=== PATIENT | male | born 1975 ===

== ENCOUNTER 2019-03-14 10:01 | Inpatient (IN) | payer BC ==
--- NOTE | 2019-03-14 11:34 | ED ---
HPI Febrile Illness - HPI Summary HPI Summary: The patient is a 44 y/o M presenting to [facility] accompanied by with a chief complaint of febrile illness onset 03/05/2019. He reports that he began a trip with his family to [facility] on 02/25/2019 and had been traveling for a few days throughout the [facility] and into the [facility] in [facility] prior to developing a fever, headache, mild nonproductive cough, and body aches on 2018. He began takin Ibuprofen for the headaches, which he described as a lightning storm. After returning to the , his symptoms persisted, and he had two doses of Cipro prophylactically on 03/08/2019 and 03/09/2019. He visited his PCP on 03/10/2019, where it was found by CXR that he had right lower lobe PNA, so he was started on Levaquin. In addition to the Levaquin, which he has not yet finished the course of, he has been taking Ibuprofen and Tylenol because his fever has not resolved. He states that he has been feeling better over the last two days, but he has not experienced a day where his temperature hasnt reached over 100.4F since onset, although he has had had a few hours of relief each day with normal temperatures. His max temperature has been 104.0F; this morning his temperature was 101F prior to taking medications. All of his other symptoms have since resolved, although he still experiences a mild cough intermittently with chills. He denies any rhinorrhea, nausea, vomiting, diarrhea , dysuria, hematuria, or change in urine frequency. He has not observed any rashes on the skin, and he notes that he only had one insect bite during his trip. His family ate at all of the same places as him, and they only drank bottled water, but they have not experienced the same symptoms. He does not believe he was in any areas with severe warnings for infectious diseases. UTD on all vaccines other than hepatitis A. No known PMHx. Nonsmoker, occasional EtOH, no substance use. Medications reviewed. Allergies noted. - History of Current Complaint Chief Complaint: EDGeneral Time Seen by Provider: 03/14/19 11:23 Hx Obtained From: Patient Onset/Duration: Started Days Ago - 03/05/19, Still Present Timing: Intermittent, Lasting Hours Temperature: 101 F - this morning Initial Severity: Moderate Current Severity: Mild Pain Intensity: 0 Pain Scale Used: 0-10 Numeric Aggravating Factors: Nothing Alleviating Factors: Nothing - meds for a few hours but fever returns Associated Signs and Symptoms: Chills, Headache - resolved, Myalgia - body aches (resolved), Other: - Negative: nausea, vomiting, diarrhea, hematuria, dysuria, change in urine frequency, rhinorrhea - Allergy/Home Medications Allergies/Adverse Reactions: Allergies Allergy/AdvReac Type Severity Reaction Status Date / Time No Known Allergies Allergy Verified 03/14/19 10:09 Home Medications: Home Medications Acetaminophen TAB* [Tylenol TAB*] 325 mg PO Q4H PRN 03/14/19 [History Confirmed 03/14/19] Levofloxacin TAB* [Levaquin TAB*] 750 mg PO DAILY 03/14/19 [History Confirmed ] PMH/Surg Hx/FS Hx/Imm Hx Endocrine/Hematology History: Denies: Hx Diabetes Cardiovascular History: Denies: Hx Hypertension Sensory History: Reports: Hx Contacts or Glasses Opthamlomology History: Reports: Hx Contacts or Glasses - Surgical History Surgical History: None Surgery Procedure, Year, and Place: none Infectious Disease History: No Infectious Disease History: Denies: Hx Clostridium Difficile, Hx Hepatitis, Hx Human Immunodeficiency Virus (HIV), Hx of Known/Suspected MRSA, Hx Shingles, Hx Tuberculosis, Hx Known/ Suspected VRE, Hx Known/Suspected VRSA, History Other Infectious Disease, Traveled Outside the [place] in Last 30 Days - Family History Known Family History: Negative: Hypertension - Social History Alcohol Use: Occasionally Substance Use Type: Reports: None Hx Tobacco Use: No Smoking Status (MU): Never Smoked Tobacco Review of Systems Positive: Fever - max 104F, Chills Negative: Nasal Discharge Positive: Cough - mild, nonproductive Negative: Vomiting, Diarrhea, Nausea Negative: dysuria, frequency, hematuria Positive: Myalgia - general body aches (resolved) Positive: Headache - resolved All Other Systems Reviewed And Are Negative: Yes Physical Exam - Summary Physical Exam Summary: Constitutional: Well-developed, Well-nourished, Alert. (-) Distressed Skin: Warm, Dry HENT: Normocephalic; Atraumatic Eyes: Conjunctiva normal Neck: Musculoskeletal ROM normal neck. (-) JVD, (-) Stridor, (-) Tracheal deviation Cardio: Rhythm regular, rate normal, Heart sounds normal; Intact distal pulses; Radial pulses are 2+ and symmetric. (-) Murmur Pulmonary/Chest wall: Effort normal. (-) Respiratory distress, (-) Wheezes, (-) Rales Abd: Soft, (-) tenderness, (-) Distension, (-) Guarding, (-) Rebound Musculoskeletal: (-) Edema Lymph: (-) Cervical adenopathy Neuro: Alert, Oriented x3 Psych: Mood and affect Normal Triage Information Reviewed: Yes Vital Signs On Initial Exam: Initial Vitals Temp Pulse Resp BP Pulse Ox 98 F 82 14 138/77 97 03/14/19 10:04 03/14/19 10:04 03/14/19 10:04 03/14/19 10:04 03/14/19 10:04 Vital Signs Reviewed: Yes Procedures - Sedation Patient Received Moderate/Deep Sedation with Procedure: No Diagnostics - Vital Signs Vital Signs Temp Pulse Resp BP Pulse Ox 03/14/19 10:04 98 F 82 14 138/77 97 - Laboratory Result Diagrams: 03/14/19 11:43 03/14/19 11:43 Lab Statement: Any lab studies that have been ordered have been reviewed, and results considered in the medical decision making process. - Radiology CXR Radiology Interpretation Completed By: Radiologist Summary of Radiographic Findings: Impression: Right pleural effusion with progression of right lower lung consolidation. Recommend follow-up until resolution to exclude underlying pulmonary parenchymal pathology. ED physician has reviewed this report. Re-Evaluation - Re-Evaluation First Eval Re-Evaluation Time: 12:30 Comment: We discussed consulation with Dr. Poon with plan for admission for thoracentesis. Patient understands and agrees. We will start IV abx. Course/Dx - Course Course Of Treatment: Patient's here 10 days of fever started while he was in [facility]. Patient was started on Levaquin on the third by his PCP for right middle lobe pneumonia. Patient continues to have fever so he came here. Patient had blood performed which showed an elevated CRP of 250 a normal white count. Patient had blood culture sent. Patient had a chest x-ray showed worsening pneumonia with a parapneumonic effusion. Dr. Mann was called to make sure there were no tropical diseases related to be worried about and he suggested treating the pneumonia first. Patient was given cefepime and vancomycin for empiric coverage. Patient is admitted to the hospitalist - Diagnoses Provider Diagnoses: Right lower lobe pneumonia, Fever, Chills, Empyema - Provider Notifications Discussed Care Of Patient With: Reinier Poon MD - infectious disease Time Discussed With Above Provider: 12:20 Instructed by Provider To: Other - I discussed the patient's case with Dr. Poon, who recommends a thoracentesis. He does not believe there is concern for an infectious disease. I spoke with Dr. Ennis from hospitalist services, who accepts the patient for admission at 1235. Discharge ED - Sign-Out/Discharge Documenting (check all that apply): Patient Departure - Patient accepted for admission by Dr. Ennis. - Discharge Plan Condition: Stable Disposition: ADMITTED TO [facility] - Billing Disposition and Condition Condition: STABLE Disposition: Admitted to [facility] - Attestation Statements Document Initiated by Bita: Yes Documenting Scribe: Alexa Carrillo Provider For Whom Bita is Documenting (Include Credential): Dr. Sean Romero MD Scribe Attestation: IAlexa, scribed for Dr. eSan Romero MD on 03/14/19 at 2124. Scribe Documentation Reviewed: Yes Provider Attestation: The documentation as recorded by the Alexa phillips accurately reflects the service I personally performed and the decisions made by me, Dr. Sean Romero MD Status of Scribmik Document: Viewed
[2019-03-14 11:59] LABS: ABS Lymphocytes 0.5 10^3/ul (1.0-4.8); ABS Monocytes 0.6 10^3/ul (0-0.8); Hematocrit 40 % (42-52); Hemoglobin 13.6 g/dL (14.0-18.0); Lymphocyte % 7.7 %; Mean Corpuscular HGB Conc 34 g/dL (31-36); Mean Corpuscular Hemoglobin 31 pg (27-31); Mean Corpuscular Volume 91 fL (80-94); Mean Platelet Volume 8.9 fL (7.4-10.4); Platelet Count 196 10^3/uL (150-450); Red Blood Count 4.33 10^6 /uL (4.18-5.48); Red Cell Distribution Width 14 % (10-15)
[2019-03-14 12:10] LABS: Urine Appearance Clear; Urine Bilirubin Negative (Negative); Urine Blood 1+ (Negative); Urine Color Straw; Urine Glucose Negative (Negative); Urine Ketones Negative (Negative); Urine Nitrite Negative (Negative); Urine Protein Negative (Negative); Urine Specific Gravity 1.002 (1.010-1.030); Urine Urobilinogen Negative (Negative)
[2019-03-14 12:11] LABS: Urine Bacteria Absent (Absent); Urine Red Blood Cell Absent (Absent); Urine White Blood Cell Absent (Absent)
[2019-03-14 12:15] LABS: Albumin 3.4 g/dL (3.2-5.2); Albumin/Globulin Ratio 0.9 (1-3); BUN/Creatinine Ratio 9.4 (8-20); C Reactive Protein 252.09 mg/L (<8.01); Calcium 8.9 mg/dL (8.6-10.3); EGFR Non-African American 84.3 (>60); Globulin 3.7 g/dL (2-4); Potassium 3.9 mmol/L (3.5-5.0); Total Bilirubin 0.4 mg/dL (0.2-1.0); Total Protein 7.1 g/dL (6.4-8.9)
[2019-03-14] MEDS ORDERED: Cefepime(*) 1 GM in NS 0.9% 50 ML* 50 ML IVPB ONE (12:29)
[2019-03-14] MEDS ORDERED: Vancomycin(*) 1,500 MG in NS 0.9% 250 ML* 250 ML IVPB ONE ×2 (12:35→13:00)
[2019-03-14] MEDS ORDERED: Ibuprofen TAB* 200 MG PO PRN (12:48)
[2019-03-14] MEDS ORDERED: Vancomycin per Pharmacy* NOTE FOLLOW UP SCH (13:00)
[2019-03-14] MEDS ORDERED: Cefepime 1 GM in Dextrose(*) 1 GM/50 ML q12h (Duplex) IV ONE (13:00)
--- NOTE | 2019-03-14 14:27 | HP ---
CC: Dr. Poon; Dr. Murray; JEFE Herman * HISTORY AND PHYSICAL: DATE OF ADMISSION: 03/14/19 PRIMARY CARE PROVIDER: JEFE Herman CHIEF COMPLAINT: Fever, chills, cough. HISTORY OF PRESENT ILLNESS: Maicol Li is a 44-year-old male who just came back from a trip to [facility] on 03/08/19. He stated that they went with his family to [facility] on [facility] and on 02/25/19 they arrived at [facility], they did some snorkeling and the patient felt well until when he started developing headache, fever and mild cough as well as body aches. He took some ibuprofen, but he did not feel like it was breaking the fever and after returning back from [facility] to [facility] between 03/07/19 and 03/08/19 he decided to eventually take ciprofloxacin that he had with himself and he took 1000 mg of it on 03/09/19. He felt that it did not make any difference and on 03/10/19 he came into [facility] for evaluation. Here, he was noted to have negative flu testing and chest x-ray showing pneumonia of the right middle lobe. At that point, he was prescribed Levaquin and sent home. He stated that he had been taking Levaquin daily as well as ibuprofen and Tylenol on an as-needed basis and he had been doing several doses of ibuprofen and Tylenol daily. Despite that, he still continues to have nightly chills and dry cough in the evening. He came today to the ED for evaluation and was noted to have definitely worsened right middle lobe pneumonia and small right-sided pleural effusion. His C-reactive protein is above 250. He is going to be admitted to the hospital with a diagnosis of pneumonia. PAST MEDICAL HISTORY: None. The patient has been healthy all his life. He never spent a night in the hospital. MEDICATIONS: Include: 1. Levaquin 750 mg daily. 2. Acetaminophen on a p.r.n. basis. 3. Ibuprofen on a p.r.n. basis. ALLERGIES: No known drug allergies. FAMILY HISTORY: Reviewed and noncontributory. SOCIAL HISTORY: The patient denies any tobacco or drug use. He drinks alcohol rarely. 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 His , Miracle Lo, is his surrogate and healthcare proxy. They have a 12-year-old child together. He is a full code. REVIEW OF SYSTEMS: Please see history of present illness. In addition to the above mentioned, the patient stated that his appetite had been low and he has been feeling overall weak. He denies any GI symptoms. He denies any rashes. When he was snorkeling in the [facility], he did use vented gear. He had his vaccine for flu in February of 2019. Despite working in the [employer], he has not seen or been visiting farms or farm animals for quite some time. All the remaining 12 systems were reviewed with the patient and were otherwise negative. PHYSICAL EXAMINATION GENERAL: The patient is a very pleasant 44-year-old male, who is in no acute distress. The patient is alert and oriented x3. VITAL SIGNS: Blood pressure of 123/75, heart rate of 82 and regular, respiratory rate 14, oxygen saturation 96% on room air, temperature 98.3. HEENT: Head: Atraumatic, normocephalic. Eyes: Pupils are equal, reactive to light and accommodation. Oropharynx is clear. Mucosa moist. NECK: Supple. No JVD. No bruits bilaterally. RESPIRATORY: Clear to auscultation bilaterally with mildly decreased breath sounds in the right lower base. CARDIOVASCULAR: Regular rate and rhythm. No murmur. ABDOMEN: Soft, nontender. Bowel sounds are present in all 4 quadrants. EXTREMITIES: There is no edema. Pulses are +2 bilaterally. No clubbing or cyanosis. NEUROLOGIC: Speech is clear. Cranial nerves II through XII grossly intact. Motor strength is 5/5 bilaterally. SKIN: On evaluation of the skin, no ecchymotic areas or rashes noted. DIAGNOSTIC STUDIES/LAB DATA: White blood cell count of 6, hemoglobin of 13.6, hematocrit 40, and platelets 196. Sodium was 132, potassium 3.9, chloride 96, carbon dioxide 28, BUN 9, creatinine 0.96. Liver function tests were unremarkable. C-reactive protein of 252. Urinalysis grossly unremarkable with low specific gravity of 1.002. The patient's portable chest x-ray, impression: "Right pleural effusion with progression of right lower lung consolidation, recommend followup until resolution to exclude underlying pulmonary parenchymal pathology." The patient's flu test was negative on 03/10/19. ASSESSMENT AND PLAN: 1. Pneumonia with effusion. The patient's pneumonia failed to be treated with Levaquin for the past 3 days. He is going to be admitted to the hospital. The concerning factor is that the infiltrate is increasing and the patient right now has an effusion. I will ask Dr. Murray to see the patient in consultation and possibility of thoracentesis. Dr. Poon is also going to be consulted as an infectious disease specialist. For the time being, the patient is going to be treated with broad-spectrum antibiotics including vancomycin and cefepime that were already started in the emergency department. Blood cultures were obtained. I ordered sputum cultures, although the patient does not produce any sputum at this point. 2. For DVT prophylaxis, ambulation was encouraged. The patient is otherwise low risk. 3. The patient's code status is full. His surrogate is his . TIME SPENT: Approximately 62 minutes was spent on admission of this patient, more than half that time was spent [id number] with the patient during the interview and physical exam. [id number]/[facility] #: [id number] AMY
[2019-03-14] MEDS: NS 0.9% 1000 ML** 1,000 ML IV SCH (15:16)
--- NOTE | 2019-03-14 18:11 | CONS ---
PULMONARY CONSULTATION REPORT: DATE OF CONSULT: 03/14/19 CONSULTATION REQUESTED BY: Dr. Ennis. REASON FOR CONSULT: Evaluation of pneumonia. HISTORY OF PRESENT ILLNESS: 44-year-old male with no past medical history. Patient presented for evaluation of fever, chills and cough. The patient recently had a trip to [facility] and [facility]. The patient left for the trip on 02/25/19. On the night of 03/05/19, he started experiencing fevers. The patient reports some sick contacts during his flight. He also did snorkeling. He was doing all these activities along with his significant other and his son, who has not had any illness in this trip. He started having significant fevers, headaches and cough, which is mostly dry associated with body aches. He has been taking ibuprofen, however, it was not breaking the fever and after returning back from [facility] to [facility] on 03/07/19, he decided to take ciprofloxacin that he had with him. It did not make any difference and came into the [facility] on 03/10/19 for evaluation. He had negative flu test and chest x-ray done at that time showed right middle lobe pneumonia. He was prescribed Levaquin and was sent home. He continued to have fevers, chills, and dry cough. He has been getting ibuprofen and Tylenol on a daily basis. He also had night sweats. Fever is mostly at night and breaks early in the morning. The patient denies chest pain, palpitations, dizziness, loss of weight or appetite. The patient denies any hemoptysis. The patient presented to the ED for further evaluation of these symptoms. The patient had repeat chest x-ray this morning. I personally reviewed chest x-ray , in comparison with the most recent x-ray. The patient with right mid zone air space opacity with slight progression in comparison with prior x-ray. Lateral chest x-ray also showed small right pleural effusion without any obvious complexities and evidence of loculations. His C-reactive protein levels were also significantly elevated, He was admitted for management of pneumonia after failing outpatient antibiotic. The patient was seen and examined at bedside. The patient does not appear to be sick or in any distress. He is hemodynamically stable. Has mild cough with taking deep breaths. Denies any more headaches. His family members are at bedside. PAST MEDICAL HISTORY: No issues. MEDICATIONS: 1. Levaquin. 2. Acetaminophen. 3. Ibuprofen. ALLERGIES: No known drug allergies. FAMILY HISTORY: No history of lung issues in the family. SOCIAL HISTORY: Nonsmoker with occasional alcohol intake. He works in [employer], mostly office job. REVIEW OF SYSTEMS: All 12 systems were reviewed and as per HPI. PHYSICAL EXAM: General: The patient in bed, in no apparent distress. Vital Signs: Temperature 97.9, pulse 85 beats per minute, respiratory rate 18 per minute, O2 sat 97% on room air, blood pressure 113/77. HEENT: Pupils equal, reactive to light. Mucous membranes moist. Lungs: Good air entry bilaterally. No wheeze or crackles. Cardiovascular: S1 and S2 present, regular. Abdomen: Soft, nontender, nondistended. Extremities: Normal range of motion. Skin: No rash or bruits. Neuro: Alert, awake, oriented x3. No focal deficits. DIAGNOSTIC STUDIES/LAB DATA: WBC count 6, hemoglobin 13.6, hematocrit 40, platelet count 196. No left shift. Sodium 132, potassium 3.9, chloride 96, bicarb 28, BUN 9, creatinine 0.96. Lactic acid 1. CRP elevated at 252. UA showed 1+ blood with no rbc. Blood cultures pending at this time. Sputum cultures have not been sent. Chest x-ray as described above in HPI. IMPRESSION AND RECOMMENDATIONS: 44-year-old male with no past medical history with recent travel presenting with fevers and chills in a week into travel. The patient with air space opacity in the right lung with slight progression over the past couple of days - evolving pneumonia versus pulmonary abscess. Less likely to be inflammatory like Leonard's; however, still in the differential given that other family members have not been ill with similar symptoms. Acute pulmonary tuberculosis less likely given the timeframe. The patient is on broad spectrum antibiotics at this time. Will repeat blood cultures when the patient is febrile. The patient is not able to to expectorate any phlegm. Will try with flutter device. Will order CT chest for further evaluation of pulmonary abscess. The patient with small right pleural effusion, did not appreciate any complexity from the chest x-ray. If CT shows enough fluid to be safely drained or shows any complexities in the fluid or evidence of pulmonary abscess, will perform thoracentesis. Thank you for allowing me to participate in the care of your patient. Will follow with you. [id number]/[facility] #: [id number] AMY
[2019-03-14] MEDS: Benzonatate CAP* 100 MG PO SCH (20:06)
[2019-03-14] MEDS: Acetaminophen TAB* 325 MG PO PRN (20:06)
[2019-03-14] MEDS: Vancomycin(*) 1,250 MG in NS 0.9% 250 ML* 250 ML IV SCH (22:53)
[2019-03-15] MEDS: Cefepime 1 GM in Dextrose(*) 1 GM/50 ML BAG IV SCH ×2 (01:04→13:22)
[2019-03-15] MEDS: Acetaminophen TAB* 325 MG PO PRN (03:37)
[2019-03-15 05:29] LABS: ABS Lymphocytes 0.6 10^3/ul (1.0-4.8); ABS Monocytes 0.5 10^3/ul (0-0.8); ABS Neutrophils 2.5 10^3/ul (1.5-7.7); Eosinophil % 0.5 %; Hematocrit 34 % (42-52); Hemoglobin 11.9 g/dL (14.0-18.0); Mean Corpuscular HGB Conc 35 g/dL (31-36); Mean Corpuscular Hemoglobin 32 pg (27-31); Mean Corpuscular Volume 90 fL (80-94); Mean Platelet Volume 8.5 fL (7.4-10.4); Platelet Count 189 10^3/uL (150-450); Red Blood Count 3.78 10^6 /uL (4.18-5.48); Red Cell Distribution Width 14 % (10-15); White Blood Count 3.7 10^3/uL (3.5-10.8)
[2019-03-15] MEDS: Vancomycin(*) 1,250 MG in NS 0.9% 250 ML* 250 ML IV SCH ×3 (05:35→21:30)
[2019-03-15] MEDS: NS 0.9% 1000 ML** 1,000 ML IV SCH (05:35)
[2019-03-15 05:46] LABS: BUN/Creatinine Ratio 8.1 (8-20); Calcium 7.9 mg/dL (8.6-10.3); EGFR African American 115.8 (>60); EGFR Non-African American 95.7 (>60); Potassium 3.7 mmol/L (3.5-5.0)
[2019-03-15] MEDS: Benzonatate CAP* 100 MG PO SCH ×2 (08:45→21:03)
[2019-03-15] MEDS: guaiFENesin ER TAB 600 MG PO SCH ×2 (10:41→21:03)
--- NOTE | 2019-03-15 13:03 | BRIEFOPN ---
Brief Operative/Procedure Note - Operation Details Pre-Op Diagnosis: Pleural effusion Post-Op Diagnosis: Moderate effusion on right Procedures: U/S guided thoracentesis on right side Surgeon(s)/Proceduralists: aliya Murray Anesthesia: Local with 1% lidocaine 5cc Estimated Blood Loss: None Findings: Dark yellow fluid-400cc Specimen(s)/Culture(s) Description: Fluid for cyto, biochem, micro Complications: None
--- NOTE | 2019-03-15 13:21 | PN ---
Progress Note - Progress Note Date of Service: 03/15/19 - Pulm f/u note Note: Pt seen and examined at bedside. Pt reports feeling better. Has intermittent dry cough Active Medications Generic Name Dose Route Start Last Admin Trade Name Freq PRN Reason Stop Dose Admin Acetaminophen 650 mg 03/14/19 12:46 03/15/19 03:37 Tylenol Tab* PO 650 mg Q4H PRN Administration PAIN-MILD/TEMP >/= 100.4 Benzonatate 100 mg 03/14/19 21:00 03/15/19 08:45 Tessalon Cap* PO Not Given BID ZAC Guaifenesin 1,200 mg 03/15/19 10:00 03/15/19 10:41 Mucinex* PO 1,200 mg BID ZAC Administration Cefepime HCl 1 gm in 50 mls @ 100 mls/hr 03/15/19 01:00 03/15/19 01:04 Maxipime 1 Gm In Dextrose Duplex (*) IV 100 mls/hr Q12H ZAC Administration Vancomycin HCl 1,250 mg/ 250 mls @ 166.667 mls/hr 03/14/19 22:00 03/15/19 05: 35 Sodium Chloride IV 166.667 mls/hr Q8H ZAC Administration Ibuprofen 600 mg 03/14/19 12:48 Advil Tab* PO Q6H PRN PAIN - MODERATE Pharmacy Consult 1 note 03/14/19 13:00 Vancomycin Per Pharmacy* FOLLOW UP .VANC PER PHARMACY ZAC Protocol Pharmacy Profile Note 1 note 03/16/19 05:30 Vancomycin Trough Check FOLLOW UP 03/16/19 05:31 0530 ONE Vital Signs Temp Pulse Resp BP Pulse Ox 98.0 F 85 20 122/76 93 03/15/19 07:15 03/15/19 07:15 03/15/19 08:00 03/15/19 07:15 03/15/19 07:15 O/E: Pt in NAD HEENT: PERRLA, no JVD Lungs: Diminished air entry at rt base, no crackles CVS: S1, S2+ Abd: Soft, BS+ Ext: Normal ROM Skin: No rash Neuro: No focal deficits Laboratory Results - last 24 hr 03/15/19 03/15/19 03/15/19 05:06 05:06 10:16 WBC 3.7 RBC 3.78 L Hgb 11.9 L Hct 34 L MCV 90 MCH 32 H MCHC 35 RDW 14 Plt Count 189 MPV 8.5 Neut % (Auto) 67.6 Lymph % (Auto) 17.0 [place] % (Auto) 14.3 Eos % (Auto) 0.5 Baso % (Auto) 0.6 Absolute Neuts (auto) 2.5 Absolute Lymphs (auto) 0.6 L Absolute Monos (auto) 0.5 Absolute Eos (auto) 0.0 Absolute Basos (auto) 0.0 Absolute Nucleated RBC 0.0 Nucleated RBC % 0.0 Sodium 133 L Potassium 3.7 Chloride 101 Carbon Dioxide 25 Anion Gap 7 BUN 7 Creatinine 0.86 Est GFR ( Amer) 115.8 Est GFR (Non-Af Amer) 95.7 BUN/Creatinine Ratio 8.1 Glucose 102 H Lactic Acid 1.2 Calcium 7.9 L I/R: 44 y o m with no PMHx a/w fever, cough, CXR showing air space opacity in rt lung. Pt initiated on broad spectrum abx. Pt had CT chest that showed moderate rt effusion, consolidation and GGO in RML and RLL. Pt also with mildly prominent lymph nodes Pt reports feeling better Pt underwent thoracentesis on right side with removal of 400cc of dark yellow turbid fluid under manual suction Fluid sent to lab for testing c/w abx ID consult appreciated
[2019-03-15 13:37] LABS: Body Fluid Source Pleural Fluid
--- NOTE | 2019-03-15 14:08 | CONS ---
CONSULTATION REPORT: DATE OF CONSULT: 03/15/19 PRIMARY CARE PROVIDER: JEFE Herman. PROVIDER REQUESTING CONSULTATION: Dr. Shavonne Ennis. ATTENDING PROVIDER: Dr. Reinier Poon * (DICTATED BY PARKER TURNER NP) IMPRESSION: 1. Right mid and lower lobe pneumonia, with parapneumonic effusion. Chest x- ray with pleural effusion and right lower lung consolidation. Chest CT with a large dense consolidation of the right middle lobe, moderate pleural effusion and areas of more ground glass type consolidation. CRP elevated on admission at 252. Afebrile and no leukocytosis. Differential diagnosis includes community- acquired pneumonia, pneumococcal versus Streptococcus pneumoniae pneumonia, viral pneumonia, and post influenza pneumonia. The patient denied any flu-like symptoms in the past few weeks. Suspect this likely represents community- acquired pneumonia with associated parapneumonic effusion. RECOMMENDATIONS/PLAN: In the setting of a parapneumonic effusion, recommend attempting a thoracentesis. He should be continued on cefepime and vancomycin for now. Further recommendations will be based on results from the thoracentesis. We will continue to follow along. HISTORY OF PRESENT ILLNESS: Mr. Li is a 44-year-old male with no significant past medical history, who states that he had been in his usual state of health. He went on a trip to the [facility] and [facility] from to 03/07/19. After hiking into the [facility] on 03/05/19, that night he developed fever, headaches with a mild cough and body aches. While he continued in the higher elevation, he continued to have fever with headaches, mild cough, and body aches. He was taking ibuprofen as needed. While on his trip, he was being cautious to drink mostly bottled water, and he reports it was possible that he may have had some drinks with ice in it. He had been sharing food and water with others he was on the trip with and they were all doing well with no symptoms. This persisted for 2 days until he departed [facility] for [facility]. He returned to [facility] on 03/08/19. He continued to have fever, headache, mild cough, persistent body aches. Being at the lower altitude did not seem to help with the symptoms, so he started Cipro that he had had with him. He continued to have fevers, headache, body aches after taking a couple of doses of Cipro. He presented to Urgent Care when he returned home to [place] on 03/10/19. He had a chest x-ray showing right middle lobe pneumonia and was started on Levaquin. He continued to have fever with night sweats, feeling well during the day, symptoms reoccurring over night, and a nonproductive cough. He spent a lot of time sleeping. He has been on Levaquin for 4 days. Prior to starting Levaquin, his reports that his fevers were 104, and after starting them, they were improved, but he was taking a lot of Tylenol and Motrin for symptom management. He described the headaches as "all over lightening." He noted that the cough was often worse. When he was having chills, at the time he felt the fever was breaking. During his travel to [facility], he was not in the [place]. He did not recall any insect bites other than 1 insect bite on his hand that occurred [place] He did snorkel using rented equipment. He denies knowingly aspirating ocean water but feels that he likely got mist in his lungs. He called his primary care provider when his symptoms persisted, who recommended that he go to the emergency room for further evaluation. He denies any weight loss, night sweats prior to this illness, reports shortness of breath with exertion with some right-sided chest discomfort. Denies joint pain, muscle pain , abdominal pain, nausea, vomiting, or diarrhea, and as previously mentioned, he traveled to [facility] and the [facility] from 02/25/19 to 03/07/19. While in the emergency room, the patient had a chest x-ray showing a right pleural effusion with a right lower lung consolidation, had no leukocytosis, was afebrile. He was referred to the hospitalist for admission. While in the hospital, he has been on cefepime and vancomycin. He had lower- grade fevers overnight. He continues to have no leukocytosis. He had significantly elevated CRP at 252. He feels that overall the majority of his symptoms since being in the hospital are resolving. The headache has resolved. He continues to have some mild discomfort in the right chest. He underwent a chest CT showing a large dense consolidation at the right middle lobe with moderate pleural effusion. Areas of more ground glass type consolidation noted. He was seen in consultation by Dr. Murray. His cough has remained nonproductive. He has been able to produce a sputum culture. Urine antigen for Streptococcus pneumoniae was negative. PAST MEDICAL HISTORY: None. PAST SURGICAL HISTORY: None. MEDICATIONS: Home medications: 1. Levaquin 750 mg by mouth daily. 2. Acetaminophen 1000 mg as needed. 3. Ibuprofen 600 mg by mouth as needed. Hospital medications: 1. Acetaminophen 650 mg by mouth every 4 hours as needed for fever and pain. 2. Tessalon capsules 100 mg by mouth twice daily. 3. Cefepime 1 g IV every 12 hours. 4. Guaifenesin 100 mg by mouth twice daily. 5. Ibuprofen 600 mg by mouth every 6 hours as needed for fever. 6. Normal saline 75 mL intravenously an hour. 7. Vancomycin 1250 mg IV every 8 hours. ALLERGIES: No known drug allergies. FAMILY HISTORY: Denies family history of recurrent resistant infection. Maternal grandfather with a history of coronary artery disease, maternal grandmother with a history of diabetes and a paternal grandfather with a history of lung cancer who had a significant smoking history. SOCIAL HISTORY: Occasionally drinks alcohol. Denies tobacco or recreational drug use. REVIEW OF SYSTEMS: I performed a 10-point review of systems. All the pertinent positives and negatives are mentioned in the history of present illness. The remaining review of systems are negative. PHYSICAL EXAMINATION: Vital Signs: Temperature 98.0, heart rate 85, respiratory rate 22, O2 sat 93% on room air, blood pressure 122/76. General Appearance: He is alert, appears to be in no acute distress. Head: Normocephalic, atraumatic. Extraocular movements are intact. No subconjunctival hemorrhage. Moist mucous membranes. Neck supple. No lymphadenopathy. He has full range of motion. No nuchal rigidity. Neurological: Alert and oriented x4. Cranial nerves II through XII are grossly intact. Moves all extremities. Cardiovascular: Regular rate and rhythm. S1, S2 present. There are no murmurs, rubs, or gallops heard. Respiratory: No accessory muscle use. The left lobe is clear to auscultation. The right mid and lower lobe are diminished. Abdomen: Bowel sounds present. Abdomen soft, nontender, nondistended. Extremities: No lower extremity edema. DP and PT pulses are 2+ and symmetric. Musculoskeletal: No clubbing or cyanosis noted. Exhibit good strength in all extremities. He has no tenderness to palpation in the neck, back, or spine. Psychological: Calm and cooperative. Skin:: No rashes or abnormalities seen on the exposed skin. DIAGNOSTIC STUDIES/LABORATORY DATA: Sodium 133, potassium 3.7, chloride 101, CO2 is 25 , BUN 7, creatinine 0.86, glucose 102. White blood cell count 3.7, hemoglobin 11.9, hematocrit 34, platelet count 189. CRP on admission 252.09. Please see impression and recommendations outlined above. Recommendations have been discussed with AC Busch. Thank you for asking us to see Mr. Li in consultation. Case has been reviewed with my attending Dr. Reinier Poon who agrees with the plan of care. Reviewed by BRANT CUEVAS 03/17/19 1601 [id number]/[facility] #: [id number] MTDD
[2019-03-15 14:54] LABS: Body Fluid Mono 42 %
--- NOTE | 2019-03-15 19:06 | PN ---
Subjective Date of Service: 03/15/19 Interval History: Patient experienced feeling of symptomatic fever overnight which has since resolved. He continues to have a cough which is dry. His dyspnea on exertion is resolved and has not had dyspnea at rest either. Denies chest pain, abd pain, chills. Objective Active Medications: Acetaminophen (Tylenol Tab*) 650 mg PO Q4H PRN PRN Reason: PAIN-MILD/TEMP >/= 100.4 Last Admin: 03/15/19 03:37 Dose: 650 mg Benzonatate (Tessalon Cap*) 100 mg PO BID [facility] Last Admin: 03/15/19 08:45 Dose: Not Given Guaifenesin (Mucinex*) 1,200 mg PO BID [facility] Last Admin: 03/15/19 10:41 Dose: 1,200 mg Cefepime HCl (Maxipime 1 Gm In Dextrose Duplex (*)) 1 gm in 50 mls @ 100 mls/ hr IV Q12H [facility] Last Admin: 03/15/19 13:22 Dose: 100 mls/hr Vancomycin HCl 1,250 mg/ (Sodium Chloride) 250 mls @ 166.667 mls/hr IV Q8H [facility] Last Admin: 03/15/19 14:31 Dose: 166.667 mls/hr Ibuprofen (Advil Tab*) 600 mg PO Q6H PRN PRN Reason: PAIN - MODERATE Pharmacy Consult (Vancomycin Per Pharmacy*) 1 note FOLLOW UP .VANC PER PHARMACY [facility]; Protocol Pharmacy Profile Note (Vancomycin Trough Check) 1 note FOLLOW UP 05 ONE Stop: 03/16/19 05:31 Vital Signs - 8 hr 03/15/19 03/15/19 11:15 15:15 Temperature 98.6 F 98.6 F Pulse Rate 76 79 Respiratory 20 20 Rate Blood Pressure 114/75 118/73 (mmHg) O2 Sat by Pulse 97 96 Oximetry Oxygen Devices in Use Now: None Appearance: Young, white male, laying upright in hospital bed, appearing comfortable and in NAD, parents and at bedside Eyes: No Scleral Icterus, - - PERRL Ears/Nose/Mouth/Throat: Mucous Membranes Moist Neck: Trachea Midline Respiratory: Symmetrical Chest Expansion and Respiratory Effort, - - minimally diminished lung sounds at right lung base and lungs otherwise CTA Cardiovascular: NL Sounds; No Murmurs; No JVD, RRR Abdominal: - - abd soft, nontender, nondistended Extremities: No Edema, No Clubbing, Cyanosis Skin: No Rash or Ulcers, - - skin warm, dry, intact Neurological: Alert and Oriented x 3, NL Muscle Strength and Tone Result Diagrams: 03/15/19 05:06 03/15/19 05:06 Microbiology and Other Data: Microbiology 03/15/19 12:02 Gram Stain - Final Body Fluid - Pleura 03/14/19 11:42 Aerobic Blood Culture - Preliminary Blood Venous No Growth Day 1 Anaerobic Blood Culture - Preliminary No Growth Day 1 03/14/19 11:47 Aerobic Blood Culture - Preliminary Blood Venous No Growth Day 1 Anaerobic Blood Culture - Preliminary No Growth Day 1 03/14/19 17:30 Streptococcus pneumoniae Ag Screen - Final Urine Negative S. pneumo Antigen Assess/Plan/Problems-Billing Assessment: 44 yo white male without significant PMHx presents with fever and cough, found to have pneumonia outpatient but with persistent symptoms. - Patient Problems (1) Parapneumonic effusion Current Visit: Yes Status: Acute Code(s): J18.9 - PNEUMONIA, UNSPECIFIED ORGANISM; J91.8 - PLEURAL EFFUSION IN OTHER CONDITIONS CLASSIFIED ELSEWHERE SNOMED Code(s): 95662874 Comment: -treated with ciprofloxacin outpatient for pneumonia after recent travel to [facility], and presented with continued fever and cough -found to have parapneumonic effusion on CT -urine strep pneumo antigen negative -appreciate pulmonology and ID consults -Dr. Murray performed thoracentesis today; labs and culture pending -continue empiric abx with vanco and cefepime per ID while pending pleural fluid culture -febrile overnight, without leukocytosis -sputum culture unable to be obtained due to nonproductive cough; urine legionella pending (2) Sepsis Current Visit: Yes Status: Acute Comment: -developed O/N -2/2 pneumonia -fever and tachycardia have improved during the day today -blood culture no growth to date (3) DVT prophylaxis Current Visit: Yes Status: Acute Code(s): Z29.9 - ENCOUNTER FOR PROPHYLACTIC MEASURES, UNSPECIFIED SNOMED Code(s): 555017367 Comment: -ambulation (4) Full code status Current Visit: Yes Status: Acute Code(s): Z78.9 - OTHER SPECIFIED HEALTH STATUS SNOMED Code(s): 558315565 Status and Disposition: inpatient pending further medical treatment
[2019-03-15 19:22] LABS: Total Protein 5.8 g/dL (6.4-8.9)
--- NOTE | 2019-03-15 21:37 | PRO ---
THORACENTESIS REPORT: DATE OF PROCEDURE: 03/15/19 PRE-PROCEDURAL DIAGNOSIS: Pneumonia and right effusion. PROCEDURE PERFORMED: Ultrasound-guided thoracentesis on the right side. ANESTHESIA: Local anesthesia with 1% lidocaine. DESCRIPTION OF PROCEDURE: Informed consent was obtained from the patient prior to the procedure after all the risks and benefits were thoroughly explained. The patient was sitting up and leaning forward during the procedure. A portable ultrasound was utilized at the bedside to localize moderate amounts of right effusion with associated lung atelectasis. No complexities noted in the pleural fluid. Strict aseptic precautions and barrier techniques were utilized. Area was disinfected with chlorhexidine. A sterile drape was placed. The area was anesthetized with 1% lidocaine subdermally down into the pleural space taking precautions.. A #11 scalpel blade was used to make a stab incision. CareFusion 8- Bol[place] thoracentesis catheter was subsequently inserted under manual suction taking precautions. The catheter was left in place and the needle was removed. 400 mL of dark yellow slightly turbid fluid was removed under manual suction. The patient tolerated the procedure well. Postprocedural chest x-ray was ordered and pending at the time of dictation. Fluid was sent to the lab for biochemical and cytological examination. [id number]/[facility] #: [id number] MTDD
[2019-03-16] MEDS: Cefepime 1 GM in Dextrose(*) 1 GM/50 ML BAG IV SCH ×2 (01:01→13:13)
[2019-03-16] MEDS ORDERED: Vancomycin Trough Check NOTE FOLLOW UP ONE (05:30)
[2019-03-16 06:21] LABS: EGFR African American 117.4 (>60)
[2019-03-16 07:08] LABS: Vancomycin Trough 12.2 mcg/mL
[2019-03-16] MEDS: Vancomycin(*) 1,250 MG in NS 0.9% 250 ML* 250 ML IV SCH ×2 (07:21→14:06)
--- NOTE | 2019-03-16 08:43 | PN ---
Progress Note - Progress Note Date of Service: 03/16/19 SOAP: Subjective: CC: pneumonia HPI: 44 year old man who developed cough, fever, malaise while in [facility], [facility] , started cipro a few days without improvement, CXR done at [facility] showed RML infiltrate, started levaquin. Took it 4-5 days and symptoms continued. Came to ER, CXR showed progression of infiltrate and pleural effusion. Thoracentesis 03/15, no fever >24 hrs, appetite good. No cough or dyspnea. Objective: Vital Signs Temp 36.6 C 03/16/19 07:15 Pulse 81 03/16/19 07:15 Resp 15 03/16/19 07:15 BP 118/74 03/16/19 07:15 Pulse Ox 94 03/16/19 07:15 Intake & Output 03/15/19 03/16/19 03/16/19 18:59 06:59 18:59 Intake Total 2641 501 480 Balance 2641 501 480 Intake: IV Fluids 485 419 ns 485 144 vanco 275 IVPB 56 82 Cefepime 56 82 Oral 2100 0 480 Other: # Bowel Movements 0 Gen:awake, no distress HEENT: no thrush Heart:Regular, no murmur Lungs:decr BS R base, no wheeze Abd:+BS NTND soft Skin: no rash MSK: no spine tenderness Laboratory Results - last 24 hr 03/15/19 03/15/19 03/15/19 05:06 10:16 12:02 Sodium 133 L Potassium 3.7 Chloride 101 Carbon Dioxide 25 Anion Gap 7 BUN 7 Creatinine 0.86 Est GFR ( Amer) 115.8 Est GFR (Non-Af Amer) 95.7 BUN/Creatinine Ratio 8.1 Glucose 102 H Lactic Acid 1.2 Calcium 7.9 L Lactate Dehydrogenase 246 Total Protein 5.8 L Fluid Source Pleural fluid Fluid Volume 10 Fluid Color Yellow Fluid Appearance Cloudy Fluid WBC 3828 Fluid RBC 3065 Fluid Tot Cell Count 100 Fluid Neutrophils 24 Fluid Lymphocytes 34 Fluid Monocytes 42 Fluid Comment Vancomycin Trough 03/16/19 05:42 Sodium Potassium Chloride Carbon Dioxide Anion Gap BUN 8 Creatinine 0.85 Est GFR ( Amer) 117.4 Est GFR (Non-Af Amer) 97.0 BUN/Creatinine Ratio Glucose Lactic Acid Calcium Lactate Dehydrogenase Total Protein Fluid Source Fluid Volume Fluid Color Fluid Appearance Fluid WBC Fluid RBC Fluid Tot Cell Count Fluid Neutrophils Fluid Lymphocytes Fluid Monocytes Fluid Comment Vancomycin Trough 12.2 Assessment: 1. Community acquired pneumonia with parapneumonic effusion, improving. No culture data to date. Pneumococcal Ag negative. Plan: 1. continue cefepime and vancomycin, day 3, continue, likely can change to linezolid 600 mg by mouth twice daily and augmentin 500 mg by mouth twice daily on 03/17. Recheck CXR 1 month as long as otherwise improving.
[2019-03-16] MEDS: Benzonatate CAP* 100 MG PO SCH (09:33)
[2019-03-16] MEDS: guaiFENesin ER TAB 600 MG PO SCH (09:42)
[2019-03-16 11:37] VITALS: BP 107/68
[2019-03-16 11:49] LABS: Fluid Type, Glucose PLEURAL; Fluid Type, Protein, Total PLEURAL
[2019-03-16 12:02] LABS: Lactate Dehydrogenase, BF 1055 U/L
[2019-03-16 12:12] LABS: ABS Eosinophils 0.1 10^3/ul (0-0.6); ABS Lymphocytes 0.4 10^3/ul (1.0-4.8); ABS Monocytes 0.5 10^3/ul (0-0.8); Eosinophil % 1.5 %; Hematocrit 36 % (42-52); Hemoglobin 12.4 g/dL (14.0-18.0); Lymphocyte % 10.8 %; Mean Corpuscular HGB Conc 35 g/dL (31-36); Mean Corpuscular Hemoglobin 32 pg (27-31); Mean Corpuscular Volume 90 fL (80-94); Mean Platelet Volume 8.2 fL (7.4-10.4); Platelet Count 240 10^3/uL (150-450); Red Blood Count 3.95 10^6 /uL (4.18-5.48); Red Cell Distribution Width 14 % (10-15)
[2019-03-16 12:39] LABS: BUN/Creatinine Ratio 11.7 (8-20); Calcium 8.2 mg/dL (8.6-10.3); EGFR African American 131.6 (>60); EGFR Non-African American 108.8 (>60); Potassium 4.1 mmol/L (3.5-5.0)
--- NOTE | 2019-03-16 14:02 | PN ---
Progress Note - Progress Note Date of Service: 03/16/19 - Pulm f/u note Note: Pt seen and examined at bedside. Pt reports feeling better, no fever, intermittent dry cough+ Active Medications Generic Name Dose Route Start Last Admin Trade Name Freq PRN Reason Stop Dose Admin Acetaminophen 650 mg 03/14/19 12:46 03/15/19 03:37 Tylenol Tab* PO 650 mg Q4H PRN Administration PAIN-MILD/TEMP >/= 100.4 Guaifenesin 1,200 mg 03/15/19 10:00 03/16/19 09:42 Mucinex* PO 1,200 mg BID [facility] Administration Cefepime HCl 1 gm in 50 mls @ 100 mls/hr 03/15/19 01:00 03/16/19 13:13 Maxipime 1 Gm In Dextrose Duplex (*) IV 100 mls/hr Q12H [facility] Administration Vancomycin HCl 1,250 mg/ 250 mls @ 166.667 mls/hr 03/14/19 22:00 03/16/19 07: 21 Sodium Chloride IV 166.667 mls/hr Q8H ZAC Administration Ibuprofen 600 mg 03/14/19 12:48 03/15/19 21:28 Advil Tab* PO 600 mg Q6H PRN Administration PAIN - MODERATE Pharmacy Consult 1 note 03/14/19 13:00 Vancomycin Per Pharmacy* FOLLOW UP .VANC PER PHARMACY [facility] Protocol Vital Signs Temp Pulse Resp BP Pulse Ox 97.2 F 74 19 107/68 96 03/16/19 11:15 03/16/19 11:15 03/16/19 11:15 03/16/19 11:15 03/16/19 11:15 O/E: Pt in NAD HEENT: PERRLA, no JVD Lungs: good a/e b/l, no crackles CVS: S1, S2+ Abd: Soft, BS+ Ext: Normal ROM Skin: No rash Neuro: No focal deficits Laboratory Results - last 24 hr 03/15/19 03/15/19 03/15/19 05:06 12:02 12:02 WBC RBC Hgb Hct MCV MCH MCHC RDW Plt Count MPV Neut % (Auto) Lymph % (Auto) Polk % (Auto) Eos % (Auto) Baso % (Auto) Absolute Neuts (auto) Absolute Lymphs (auto) Absolute Monos (auto) Absolute Eos (auto) Absolute Basos (auto) Absolute Nucleated RBC Nucleated RBC % Sodium 133 L Potassium 3.7 Chloride 101 Carbon Dioxide 25 Anion Gap 7 BUN 7 Creatinine 0.86 Est GFR ( Amer) 115.8 Est GFR (Non-Af Amer) 95.7 BUN/Creatinine Ratio 8.1 Glucose 102 H Calcium 7.9 L Lactate Dehydrogenase 246 Total Protein 5.8 L Fluid Source Pleural Fluid Volume 10 Fluid Color Yellow Fluid Appearance Cloudy Fluid WBC 3828 Fluid RBC 3065 Fluid Tot Cell Count 100 Fluid Neutrophils 24 Fluid Lymphocytes 34 Fluid Monocytes 42 Fluid Cell Count Rvw By Fluid Glucose Fluid Total Protein Fluid LDH 1055 Fluid Comment Vancomycin Trough 03/15/19 03/15/19 03/16/19 12:02 12:02 05:42 WBC RBC Hgb Hct MCV MCH MCHC RDW Plt Count MPV Neut % (Auto) Lymph % (Auto) Polk % (Auto) Eos % (Auto) Baso % (Auto) Absolute Neuts (auto) Absolute Lymphs (auto) Absolute Monos (auto) Absolute Eos (auto) Absolute Basos (auto) Absolute Nucleated RBC Nucleated RBC % Sodium Potassium Chloride Carbon Dioxide Anion Gap BUN 8 Creatinine 0.85 Est GFR ( Amer) 117.4 Est GFR (Non-Af Amer) 97.0 BUN/Creatinine Ratio Glucose Calcium Lactate Dehydrogenase Total Protein Fluid Source Pleural Pleural Fluid Volume Fluid Color Fluid Appearance Fluid WBC Fluid RBC Fluid Tot Cell Count Fluid Neutrophils Fluid Lymphocytes Fluid Monocytes Fluid Cell Count Rvw By Fluid Glucose 64 Fluid Total Protein 4.1 Fluid LDH Fluid Comment Vancomycin Trough 12.2 03/16/19 03/16/19 12:00 12:00 WBC 4.0 RBC 3.95 L Hgb 12.4 L Hct 36 L MCV 90 MCH 32 H MCHC 35 RDW 14 Plt Count 240 MPV 8.2 Neut % (Auto) 74.7 Lymph % (Auto) 10.8 Polk % (Auto) 12.4 Eos % (Auto) 1.5 Baso % (Auto) 0.6 Absolute Neuts (auto) 3.0 Absolute Lymphs (auto) 0.4 L Absolute Monos (auto) 0.5 Absolute Eos (auto) 0.1 Absolute Basos (auto) 0.0 Absolute Nucleated RBC 0.0 Nucleated RBC % 0.0 Sodium 135 Potassium 4.1 Chloride 101 Carbon Dioxide 26 Anion Gap 8 BUN 9 Creatinine 0.77 Est GFR ( Amer) 131.6 Est GFR (Non-Af Amer) 108.8 BUN/Creatinine Ratio 11.7 Glucose 93 Calcium 8.2 L Lactate Dehydrogenase Total Protein Fluid Source Fluid Volume Fluid Color Fluid Appearance Fluid WBC Fluid RBC Fluid Tot Cell Count Fluid Neutrophils Fluid Lymphocytes Fluid Monocytes Fluid Cell Count Rvw By Fluid Glucose Fluid Total Protein Fluid LDH Fluid Comment Vancomycin Trough I/R: 44 y o m with no PMHx a/w fever, cough, CXR showing air space opacity in rt lung. Pt initiated on broad spectrum abx. Pt had CT chest that showed moderate rt effusion, consolidation and GGO in RML and RLL. Pt also with mildly prominent lymph nodes Pt underwent thoracentesis on right side with removal of 400cc of dark yellow turbid fluid under manual suction Fluid characteristics consistent with exudative effusion Parapneumonic effusion 2/2 PNA CX negative to date c/w abx as per ID Will need f/u CXR in 6-8 weeks D/w pt and family at bedside
--- NOTE | 2019-03-16 20:27 | DS ---
DISCHARGE SUMMARY: DATE OF ADMISSION: 03/14/19 DATE OF DISCHARGE: 03/16/19 PROVIDER: Brittany Moss NP. ATTENDING PHYSICIAN: Dr. Garcias.* (DICTATED BY BRITTANY MOSS NP) PRIMARY CARE PROVIDER: JEFE Herman. CONSULTING PHYSICIANS: Dr. Murray and Dr. Poon. PRIMARY DIAGNOSES: 1. Right middle lobe pneumonia. 2. Sepsis. PROCEDURES: The patient underwent an ultrasound-guided thoracentesis on the right side. STUDIES: On 03/15/19, chest x-ray showed small right pleural effusion with right basilar consolidation. No appreciable pneumothorax. Chest x-ray earlier on the day, on the , showed right pleural effusion. CT scan of the chest without contrast showed large dense consolidation of the right middle lobe anteriorly with additional involvement of the adjacent anterior and inferior aspect of the right upper lobe consistent with pneumonia. No cavitation evident on nonenhanced study. Mass could be obscured here. There are more additional areas of more ground glass type consolidation in the right upper, middle lobe and lower lobes, moderate right and trace left pleural effusions, small pericardial effusion, borderline mediastinal and hilar lymphadenopathy and no other acute disease seen on nonenhanced studies above. Chest x-ray on , showed right pleural effusion with progression of right lower lobe lung consolidation. PERTINENT LAB STUDIES: RBC 3.95, hemoglobin 12.4, hematocrit 36, and MCH 32. Calcium 8.2. Pleural fluid was yellow and cloudy, white blood cell count 3828, RBC 3065, total cell count 100, neutrophils 24, lymphocytes 34, monocytes 42, glucose 64, total protein 4.1, LDH 1055. HISTORY AND PHYSICAL/HOSPITAL COURSE: This is a 44-year-old male, who presented to the emergency room on 03/14/19 with fever, chills, and cough. He had recently returned from a trip to [facility] on 03/08/19. He had [place] to the [facility] on 02/25/19 and did snorkeling and felt well until 03/06/19 until he started developing headache, fever, and mild cough as well as body aches. He took some ibuprofen and then returned back from [facility] to [facility] between 03/07/19 and 03/08/19. He took 1000 mg of ciprofloxacin that he had with himself on 03/09/19, though he felt that it did not make any difference and then on the , he came to [facility] for evaluation. He was negative for flu. Chest x- ray at that point revealed right middle lobe pneumonia and was prescribed Levaquin and sent home. However , the symptoms did not improve while taking Levaquin, ibuprofen, and Tylenol daily, which resulted in him presenting to the emergency room. Blood cultures were taken, which has shown no preliminary growth. Labs were drawn. Chest x- ray and chest CT performed. Dr. Murray consulted as well as Aletha Davies from Infectious Disease. The patient was started on vancomycin and cefepime. The next day, the patient underwent thoracentesis on the right side with Dr. Murray for 400 mL of cloudy darker yellow fluid was removed and sent for analysis. There has been no preliminary growth on day 1 from the pleural fluid. The Gram stain of the pleura showed 4+ nucleated cells, 2+ neutrophils. Today, the patient is doing much better. Denies coughing, chest pain, fever, chills, lightheadedness, dizziness, wheezes, abdominal pain, nausea, vomiting. He does not get dyspneic. He had walked 3 times around the unit without any distress. Seen by Dr. Poon today, who felt that he was ready to go home. REVIEW OF SYSTEMS: An 11-point system review was performed, which was negative for any chest pain, coughing, shortness of breath, dizziness, lightheadedness, fever, chills, nausea, vomiting,. Issues moving bowel or bladder. PHYSICAL EXAMINATION: Vital Signs: 97.9 Fahrenheit, 81 pulse, 15 respirations , 94% oxygen on room air, 118/74 blood pressure. General: This is a well- developed gentleman, seen sitting up in bed, in no acute distress. HEENT: Conjunctivae pink and moist. PERRLA, EOMs intact. Mucous membranes moist. Oropharynx clear. Neck is supple. Cardiac: S1, S2 present. Heart rate is regular. No murmurs, gallops or rubs appreciated. Respiratory: Noted crackles to bilateral bases, other lung kaiser clear. He was on room air. Abdomen: Soft, nontender, nondistended with positive bowel sounds x4. Musculoskeletal: 5/5 strength bilateral upper and lower extremities. No clubbing or cyanosis of the digits. Skin is intact. No lesions or rashes. Neurologic: No focal deficits appreciated. Sensation is intact to light touch. Psych: Alert and oriented x3. Thought content organized. DISCHARGE PLAN: Diet is regular. Activity is as tolerated. He is to avoid smoking environments for the next month. He is to return to the hospital if he has any increasing fever, chills, chest pain, shortness of breath, or drainage from the thoracentesis site. Plan for each condition: For right middle lobe pneumonia, the patient is to go home on twice-a-day Augmentin and linezolid as per Dr. Poon for 7 more days and is to follow up with Dr. Poon at some point next week. Will require chest x- ray within 1 month as a followup. MEDICATIONS: To continue upon discharge: 1. Acetaminophen 325 mg p.o. q.4 hours p.r.n. 2. Ibuprofen 200 mg p.o. q.4 hours p.r.n. 3. Linezolid 600 mg p.o. b.i.d. x7 days. 4. Augmentin/clavulanic acid 500 mg p.o. b.i.d. x7 days. CONDITION UPON DISCHARGE: Stable. DISPOSITION: To home. TIME SPENT: Time spent on patient is about 60 minutes with half of that spent face- to-face. BRITTANY MOSS, STACIA [id number]/[facility] #: [id number] [facility]
== END 2019-03-16 16:10 | disposition home or self-care (01) | DRG 720 ==
LOC: ED 10:01 → MED 12:46
PROVIDERS: ADMIT Internal Medicine; ATTEND Internal Medicine
PROC: 0W993ZZ Drainage of Right Pleural Cavity, Percutaneous Approach (ICD-10-PCS; principal; 2019-03-15)
DX: A41.9 Sepsis, unspecified organism (principal); J18.9 Pneumonia, unspecified organism; J91.8 Pleural effusion in other conditions classified elsewhere; Z28.21 Immunization not carried out because of patient refusal
CPT/HCPCS: 36415; 71045; 71046; 71250; 76604; 80048; 80053; 80202; 81003; 81015; 82565; 82945; 83605; 83615; 83986; 84155; 84157; 84520; 85025; 86140; 86713; 87040; 87205; 87899; 88112; 89051; 96374; 99284; A9270-GY; J0692; J3370